=== PATIENT | male | born 1980 | race Caucasian/White ===

== ENCOUNTER → 2025-05-25 07:18 | Outpatient (REF) | payer BC, SELFPAY | LOC: HWRAD 07:18 | PROVIDERS: ATTENDING PHYSICIAN Family Medicine | DX: N50.89 Other specified disorders of the male genital organs (principal) | CPT/HCPCS: 76870; 93976 ==

== ENCOUNTER 2025-11-01 06:27 | Day surgery (SDC) | payer BC, SELFPAY ==
[2025-11-01 10:25] VITALS: BMI 29.9
[2025-11-01 10:34] VITALS: BP 157/91
[2025-11-01] MEDS: TYLENOL 1000 MG PO (10:40)
[2025-11-01] MEDS: HEPARIN 5000 UNITS SC (10:41)
[2025-11-01] MEDS: NORMOSOL-R/PLASMALYTE-A 1000 IV (10:51)
--- NOTE | 2025-11-01 11:56 | W.IMMPOSTOP ---
Surgical Immed Post Op Note
-
Primary Surgeon: Daniel
Assisting: Bob PEREZ
Pre-op Diagnosis: Incarcerated umbilical hernia
Post-op Diagnosis: Same
Procedure Performed: Robot assisted laparoscopic repair incarcerated umbilical hernia (rTAPP)
Anesthesia Type: GETA
Specimen / Cultures: None
Estimated Blood Loss: 4cc
Complications: None immediate
Operative Findings: 2.3 x 1.2cm defect, 15cm x 15cm bard soft mesh
--- NOTE | 2025-11-01 11:57 | OR.RPT ---
Operative Report
Operative Report
Primary Surgeon: Daniel
Assisting: Bob PEREZ
Pre-op Diagnosis: Incarcerated umbilical hernia
Post-op Diagnosis: Same
Procedure Performed: Robot assisted laparoscopic repair incarcerated umbilical hernia (rTAPP)
Anesthesia Type: GETA
Specimen / Cultures: None
Estimated Blood Loss: 4cc
Complications: None immediate
Operative Findings: 2.3cm x 1.2cm defect, 15cm x 15cm bard soft mesh [Hernia size 2.3cm]
DOS: 11/01/25
Indications:� This 45M developed an incarcerated umbilical hernia. Robot assisted laparoscopic repair was planned.
Description of procedure:� The patient was taken to the operating room and positioned into supine position. The patient�s abdomen was prepped and draped in standard sterile fashion. A time-out was completed verifying correct patient, procedure,
site, positioning, and implants and special equipment prior to beginning this procedure.� After induction and prior to prep, the hernia was reduced and the groins were inspected by palpation and no defects were palpated. A stab incision was made in
the left upper quadrant, a Veress needle was inserted and proper position was confirmed by aspiration and saline drop test. Following this, pneumoperitoneum was created with insufflation of carbon dioxide to 12 mmHg. Then a 8mm robotic trocar was
inserted at the left anterior axillary line. The laparoscope was inserted and no injuries were identified in the area. Under direct visualization, two 8mm trocars were placed a hand's breadth inferior to the initial trocar and a hand's breadth
inferior to the second trocar in succession.
Attention was turned to the defect. The peritoneum was incised several cm superior to the defect and a peritoneal flap was developed in transverse and caudad directions using blunt and sharp dissection and judicious electrocautery. The defect
measured as above. Incarcerated fat was reduced and the defect was closed with 0 PDS stratafix suture. Mesh was passed into the abdomen and centered on the defect, secured to the abdominal wall 2-0 vicryl suture. The flap was closed over the mesh
and secured with 2-0 monocryl stratafix suture. A transversus abdominis plane block was then performed under laparoscopic vision with marcaine/decadron.
After ensuring adequate hemostasis, the trocars were removed and the pneumoperitoneum allowed to escape. The trocar incisions were closed at the skin level using 4-0 monocryl and topical skin adhesive. All counts were correct. The patient tolerated
the procedure well and was taken to the postanesthesia care unit in stable condition.
The assistance of Bob PEREZ was required due to the complexity of the procedure. During the procedure she assisted with retraction, resection, and closure of the wound.
[2025-11-01 12:15] VITALS: BP 135/89; BP 157/91
[2025-11-01] MEDS: ZOFRAN 4 MG IV (12:26)
[2025-11-01 12:30] VITALS: BP 128/74
[2025-11-01 12:45] VITALS: BP 125/76
[2025-11-01 13:30] VITALS: BP 132/82
== END 2025-11-01 11:04 | disposition home or self-care (01) ==
LOC: SDS 06:27
PROVIDERS: ATTENDING PHYSICIAN Surgery
DX: K42.0 Umbilical hernia with obstruction, without gangrene (principal)
CPT/HCPCS: 49592; C1781